=== PATIENT | female | born 1985 | race Caucasian/White ===

== ENCOUNTER 2018-07-29 11:31 | Inpatient (IN) ==
[2018-07-29] MEDS ORDERED: NS 1,000 ML IV ONE (11:45)
[2018-07-29] MEDS ORDERED: ZOFRAN IV ONE ×2 (11:45→15:57)
[2018-07-29 12:32] LABS: BASO# 0.01 X1000 (0.0-0.2); EOS# 0.01 X1000 (0.0-0.7); HEMOGLOBIN 13.1 g/dL (12.0-16.0); IMM GRAN# 0.06 X1000 (0.0-0.04); IMM GRAN% 0.3 % (0.0-0.5); LYMPH# 2.34 X1000 (1.2-3.4); LYMPH% 11.4 % (20.5-51.1); MCH 25.9 PG (27-31); MCHC 31.9 g/dL (33-37); MCV 81.4 FL (81-99); MONO# 1.02 X1000 (0.11-0.59); MONO% 5.1 % (1.7-9.3); NEUT# 16.63 X1000 (1.4-6.5); NEUT% 83.3 % (42.2-75.2); PLT 359 X1000 (130-400); RBC 5.05 XMIL (4.2-5.4); RDW 14.6 % (11.5-14.5); WBC 20.01 X1000 (4.8-10.8)
[2018-07-29 12:59] LABS: OCCULT BLOOD 1 POSITIVE (NEGATIVE)
[2018-07-29 13:02] LABS: BILIRUBIN URINE NEGATIVE (NEGATIVE); BLOOD URINE 3+ (NEGATIVE); GLUCOSE URINE NEGATIVE (NEGATIVE); KETONE URINE TRACE mg/dL (NEGATIVE); LEUKOCYTES URINE TRACE (NEGATIVE); NITRITE URINE POSITIVE (NEGATIVE); PH URINE 6.5; PROTEIN URINE 2+(100 mg/dL) mg/dL (NEGATIVE); UROBILINOGEN URINE NORMAL
[2018-07-29 13:03] LABS: CLARITY CLEAR (CLEAR); COLOR YELLOW; URINE BACTERIA 2+ /HFP; URINE CAST NONE SEEN /LPF; URINE CRYSTAL NONE SEEN /HPF; URINE EPITHELIAL CELLS >10 /HPF (<10); URINE RBC <10 /HPF (<10); URINE SOURCE CLEAN CATCH; URINE WBC <10 /HPF (<10); URINE YEAST PRESENT /HPF
[2018-07-29] MEDS ORDERED: ROCEPHIN 1 GM in NS 50 ML IV ONE (13:39)
[2018-07-29 13:57] LABS: I-STAT CREATININE 0.9 mg/dL (0.6-1.3)
[2018-07-29 14:30] LABS: INR 0.91; PROTIME 12.7 Seconds (11.0-16.0); PTT 26.4 Seconds (22.3-41.8)
[2018-07-29] MEDS ORDERED: APRESOLINE IV ONE (14:34)
--- NOTE | 2018-07-29 14:45 | Diag Imaging Result Doc PS360 ---
CT ABD/PELVIS W/IV CONT ONLY - 07/29/2018 INDICATION: abdo pain COMPARISON: 08/04/2010 FINDINGS: There are nodules in the lateral right lower lobe. These measure up to 21 x 14 mm. No infiltrates. Heart size is normal with no pericardial effusion. There is wall thickening of the antrum of the stomach compatible with gastritis. No obstruction. No free air or free fluid. The liver, gallbladder, spleen, pancreas, adrenals, and kidneys are normal. Urinary bladder, uterus, and rectum are normal. There are bilateral ovarian cysts. These measure 3.3 cm on the right and 4 cm on the left. Bones are intact. IMPRESSION: 1. Gastritis of the antrum of the stomach. No obstruction or perforation. 2. Bilateral ovarian cysts. 3. Rather large pulmonary nodule in the left lower lobe, indeterminate. This exam was performed using automated exposure control, adjustment of mA or kV according to patient size, and/or use of iterative reconstruction technique Electronically signed by Sven Lopez 07/29/2018 2:43 PM
[2018-07-29] MEDS ORDERED: TYLENOL PO ONE (15:06)
--- NOTE | 2018-07-29 15:21 | PROVIDER DOCUMENTATION ---
This chart was entered by Grecia Alvarado Scribe, acting as scribe for Prateek Hough MD. HPI-Abdominal Pain/GI Problem - General Chief Complaint: Vomiting Stated Complaint: VOMITTING Time Seen by Provider: 07/29/18 11:40 Source: patient, family Allergies/Adverse Reactions: Patient Allergies Allergy/AdvReac Type Severity Reaction Status Date / Time No Known Allergies Allergy Verified 07/29/18 11:37 Home Medications: Home Medication List Medication Instructions Recorded Confirmed Last Taken Type Lisinopril 1 tab PO DAILY 07/29/18 07/29/18 Unknown History Meloxicam 15 mg PO DAILY 07/29/18 07/29/18 Unknown History - History of Present Illness-ABD Nature of Presenting Problems: 32 yowf presents to the ed with family. pt sts yesterday saw pcp for sinus infection and was given 2 shots of abx. pt once home n/v started and sts since onset pt has vomited 14x. pt took a zofran this am @ 0900 with mild relief Abdominal Pain Onset Location: reports: generalized abdomen Quality of Pain: reports: cramping Severity in ED: reports: moderate Onset/Duration: reports: 24 hours ago Timing: reports: still present, intermittent Activities at Onset: reports: other (post abx shots x2) Exposure to sick contacts?: Yes Modifying Factors: improves with: nothing. worse with: eating Associated Symptoms: reports: nausea, vomiting (x14). denies: back/neck pain, chest pain, cough, diarrhea, fever/chills, headaches, muscle aches, rash, syncope Last BM: last night Dark Stools Present?: reports: none noticed Rectal Bleeding: reports: none # of Diarrhea Episodes: 0 Rectal Pain: reports: none # of Vomiting Episodes: 14 (since onset yesterday) Emesis Description: reports: other (sts has "blood chunks" in vomit) Bruising or Bleeding Gums?: No Similar Symptoms Previously?: No Recently seen or treated by another doctor?: No Review of Systems - Adult - REVIEW OF SYSTEMS - ADULT Constitutional: denies: chills, fever Eyes: reports: no symptoms reported Ears, Nose, Mouth & Throat: reports: no symptoms reported Cardiovascular: denies: chest pain, palpitations Respiratory: denies: cough, shortness of breath, wheezing Gastrointestinal: reports: see HPI, abdominal pain (diffuse), hematemesis ("blood chunks"), nausea, vomiting. denies: diarrhea Genitourinary: reports: no symptoms reported Musculoskeletal: denies: back pain, neck pain Integumentary: reports: no symptoms reported Neurological: reports: no symptoms reported Psychiatric: reports: no symptoms reported Endocrine: reports: no symptoms reported Hematologic/Lymphatic: reports: no symptoms reported Allergic/Immunologic: reports: no symptoms reported All Other Systems: Reviewed and Negative Past History - Adult - PAST MEDICAL HISTORY-ADULT Review of Records: reports: Nursing Assessment Review, Medications Reviewed Major Childhood Illnesses: reports: denies history Cardiovascular: reports: denies history Respiratory: reports: denies history Gastrointestinal: reports: denies history Obstetrical/Gynecological: reports: other (PCOS) Genitourinary: reports: denies history Musculoskeletal: reports: denies history Hand Dominance: Right Handed Neurological: reports: denies history Psychiatric: reports: denies history Endocrine/Immune: reports: denies history Other Conditions: reports: denies history - PRIOR SURGERIES/PROCEDURES Surgical/Procedure History: reports: other (stomach sx as a toddler) - IMMUNIZATION STATUS Childhood Immunizations: See Nurse Assessment Flu Vaccine: See Nurse Assessment - FAMILY HISTORY Family History: reviewed, not pertinent - SOCIAL HISTORY Smoking: denies Substance Use: alcohol Alcohol Use Frequency: occasionally Number of drinks per typical drinking period:: 3-4 drinks Living Situation: family Physical Exam-General - PHYSICAL EXAM-ADULT Initial Vital Signs Reviewed: Yes - CONSTITUTIONAL General Appearance: appears well, alert, no apparent distress, obese - EYES Eyes: PERRL/EOMI, pink conjunctivae - HEAD, EARS, NOSE, MOUTH & THROAT HENMT: moist mucous membranes (pt is nontoxic in appearance. pt holding emesis bag and garbage can with no vomit in either), normal ENT inspection - NECK Neck: non-tender, full range of motion, supple, normal inspection - RESPIRATORY Respiratory: chest non-tender, lungs clear, normal breath sounds - CARDIOVASCULAR Cardiovascular: normal peripheral pulses, regular rate, rhythm - GASTROINTESTINAL (ABDOMEN) Abdominal Exam: normal bowel sounds, non tender, soft - LYMPHATIC Lymphatic: no adenopathy - MUSCULOSKELETAL Back Exam: normal inspection, no CVA tenderness, no vertebral tenderness Extremity: normal range of motion, non-tender, normal gait, normal inspection - SKIN Integumentary: normal color, normal turgor, warm/dry - NEUROLOGIC Neurologic: grossly normal - PSYCHIATRIC Psych/Mental Status: normal mood/affect, normal thought content, normal thought process, oriented x 3 Progress - PLAN OF CARE/RESULTS Progress/Plan/Lab Results: Vital Signs - 8 hr 07/29/18 11:35 Temperature 98.0 F Pulse Rate 95 H Respiratory Rate 17 Blood Pressure 164/110 O2 Sat by Pulse Oximetry 96 Result Diagrams: 07/29/18 11:15 07/29/18 13:50 - REASSESSMENT Reassessment #1 Time Reassessed: 12:13 Status: unchanged Reassessment Comment: at bedside Reassessment #2 Time Reassessed: 15:01 Status: unchanged Reassessment Comment: at bedside - CT/MRI 1 CT Study: Abdomen, Pelvis Impression: See EMR Report (CT ABD/PELVIS W/IV CONT ONLY - 07/29/2018 INDICATION: abdo pain COMPARISON: 08/04/2010 FINDINGS: There are nodules in the lateral right lower lobe. These measure up to 21 x 14 mm. No infiltrates. Heart size is normal with no pericardial effusion. There is wall thickening of the antrum of the stomach compatible with gastritis. No obstruction. No free air or free fluid. The liver, gallbladder, spleen, pancreas, adrenals, and kidneys are normal. Urinary bladder, uterus, and rectum are normal. There are bilateral ovarian cysts. These measure 3.3 cm on the right and 4 cm on the left. Bones are intact. IMPRESSION: 1. Gastritis of the antrum of the stomach. No obstruction or perforation. 2. Bilateral ovarian cysts. 3. Rather large pulmonary nodule in the left lower lobe, indeterminate. This exam was performed using automated exposure control, adjustment of mA or kV according to patient size, and/or use of iterative reconstruction technique Electronically signed by Sven Lopez 07/29/2018 2:43 PM 07/29/18 1443 Interpreting Physician: Sven Lopez MD Dictated Date/Time: 07/29/18 1440 cc: Prateek Hough MD; Billy Wray MD) - CONSULTS/PCP/HOSPITALIST Notification #1 *Consult/PCP/Hospitalist*: hospitalist dr waldron Time Discussed: 15:18 Consult Disposition: Admit Departure - Departure Date of Disposition Decision: 07/29/18 Time of Disposition Decision: 15:18 DIAGNOSIS: Pyelonephritis, GI bleeding, Lung nodule, Hematuria Disposition: ADMITTED INPATIENT 09 Certified Medical Emergency: Emergent Condition: Fair Referrals and Follow-Ups: Billy Wray MD [Primary Care Provider] - - Critical Care Note This patient required my direct & personal management of CC.: No Attestation - Physician/ CRIS Attestation Patient care was provided by Advanced Practice Provider:: No The physician spent face to face time with patient:: Yes Advanced Practice Provider documentation review:: Supervising physician onsite and consulted in the evaluation and care of this patient. The physician did have a face to face encounter with the patient. This chart was documented by the indicated scribe, (Grecia Alvarado Scribe) and accurately reflects the services I performed and decisions made by me, Prateek Hough MD, as attested by the provider's signature.
[2018-07-29 15:30] LABS: AGAP 19; ALBUMIN 4.4 g/dL (3.5-5.0); ALKALINE PHOSPHATASE 117 U/L (32-104); BUN 18 mg/dL (8-22); CALCIUM 9.1 mg/dL (8.8-10.2); CHLORIDE 101 mmol/L (98-107); COSMO 292; CREATININE 0.9 mg/dL (0.5-0.9); ESTIMATED GFR > 60; GLUCOSE 119 mg/dL (70-104); GOT 13 U/L (10-30); GPT 13 U/L (10-36); POTASSIUM 3.9 mmol/L (3.5-5.1); SODIUM 145 mmol/L (136-145); TCO2 26 mmol/L (25-35)
[2018-07-29] MEDS ORDERED: TYLENOL PO PRN (17:57)
[2018-07-29] MEDS ORDERED: ZOFRAN IV PRN (17:57)
--- NOTE | 2018-07-29 18:25 | HISTORY AND PHYSICAL ---
PRIMARY CARE PROVIDER: Dr. Billy Wray. CHIEF COMPLAINT: Nausea and vomiting. HISTORY OF PRESENT ILLNESS: Ms. Paul is a 32-year-old female who carries a past medical history of morbid obesity, hypertension, bilateral hip arthritis, who reports that on Saturday she started feeling bad. She was diagnosed with a sinus infection. She got 2 shots of antibiotics and on Saturday she started experiencing nausea and vomiting. She had no relief with p.o. Zofran. She came to the ED today complaining of fever of 101.3, chills. Workup in the ED revealed a white count of 20, urinalysis with 3+ blood, positive nitrate, 2+ bacteria, and a positive occult stool. CT of the abdomen and pelvis showed gastritis in the antrum of the stomach but no obstruction or perforation. Bilateral ovarian cysts and a rather large pulmonary nodule in the left lower lobe. She was initiated on IV antibiotics, work up for sepsis. Her lactates have been normal. Her nausea and vomiting has been controlled with IV Zofran and IV fluids. We will transfer her to [facility] for consult with gastroenterology for her positive occult stool as she also reports some black dark stools and her gastritis. She recently started taking meloxicam for her bilateral hip arthritis, as well as follow up with Pulmonology for her large nodule. Hemoglobin and hematocrit is currently stable at 13 and 41. PAST MEDICAL HISTORY: 1. Hypertension. 2. Bilateral hip arthritis. PAST SURGICAL HISTORY: , stomach surgery at the age of 1 to open of her stomach. SOCIAL HISTORY: She is . She has twin children, a boy and a girl. She was a half a pack a day smoker on and off for several years. She recently started to wean down. No alcohol, tobacco, or illicit drug use. She was a drug and alcohol abuse counselor for 9 years. FAMILY HISTORY: multiple family with heart disease with father, mother, brother, sister, as well as strokes and kidney disease. ALLERGIES: No known drug allergies. HOME MEDICATIONS: 1. Lisinopril 20 mg p.o. daily. 2. Meloxicam 15 mg p.o. daily. REVIEW OF SYSTEM: The patient was positive for fever, chills, nausea, vomiting. She did feel like she had some darker stools. No chest pain, palpitations, shortness of breath. PHYSICAL EXAMINATION: VITAL SIGNS: Temperature is 98.7 degrees, heart rate 100, respirations 18, blood pressure 134/102, O2 is 97% on room air. GENERAL: Ms. Paul is a pleasant, 32-year-old female, sitting up in the stretcher, in no acute distress. HEENT: Atraumatic, normocephalic. PERRL. NECK: Supple. Trachea midline. CARDIOVASCULAR: S1, S2 appreciated. No murmurs, gallops, rubs noted. RESPIRATORY: Lung sounds clear bilaterally. GI: Obese, soft, nontender, nondistended. Positive bowel sounds 4 quadrants. EXTREMITIES: No lower extremity edema. Bilateral pedal pulses were bounding. NEUROLOGIC: No focal deficits noted. DIAGNOSTIC DATA: Abdomen and pelvis CT: Gastritis in the antrum of the stomach. No obstruction or perforation. Bilateral ovarian cysts with a large pulmonary nodule in the left lower lobe. LABORATORY DATA: White count 20, hemoglobin and hematocrit 13 and 41, platelet count 359,000. Sodium 145, potassium 3.9, BUN 18, creatinine 0.9, blood glucose is 119. Urinalysis, 2+ protein, 3+ blood, positive nitrates, 2+ bacteria. Occult stool positive. ASSESSMENT AND PLAN: 1. Pyelonephritis. We will continue with IV antibiotics, IV fluids. We will await urine culture as well as blood cultures. 2. Gastritis in the antrum. We will start her on PPI. Continue with clear liquids. Consult GI. 3. Questionable gastrointestinal bleed. Hemoglobin and hematocrit are stable. Patient did report some dark stools but no bright red blood per rectum. We will continue to monitor her hemoglobin and hematocrit closely. Appreciate GI's input and we will stop her NSAID. 4. Large pulmonary nodule. We will consult Pulmonology for assessment. 5. Hypertension. Will continue her lisinopril. 6. Bilateral hip arthritis. Aware. Will provide her p.r.n. Tylenol. 7. Further recommendations to follow physician evaluation, laboratory and diagnostic data. Patient will be transferred over to [facility] for GI and Pulmonary consult. Dictated by MILIND Wolfe for Michael Knowles MD cc: Michael Knowles MD [facility]
[2018-07-29] MEDS: PRILOSEC PO SCH (18:34)
[2018-07-29] MEDS: LEVAQUIN 750 MG/D5W 750 MG/150 ML IVPB IV SCH (18:35)
[2018-07-29] MEDS: NS 1,000 ML IV SCH (18:35)
--- NOTE | 2018-07-29 18:47 | HISTORY AND PHYSICAL ---
HISTORY OF PRESENT ILLNESS: Patient seen and examined by myself. Full note dictated and discussed with nurse practitioner. Patient presented to the hospital with nausea and vomiting. States that she has been vomiting heavily for the past 24 hours or so. States she has noticed blood in her stool, dark black stool started earlier today. She felt as though she had a urinary tract infection, so she came to the ER. On exam, her blood pressure was 134/102. She is awake and alert. She is currently in no distress. She has had no further vomiting or diarrhea since arrival to the hospital. PLAN: We will admit her to the hospital, place her on antibiotics. We will stop her anti- inflammatory that she has apparently recently started within the past month I believe and we will follow. Please see full note. cc: Michael Knowles MD
--- NOTE | 2018-07-29 19:28 | GASTROENTEROLOGY CONSULTATION ---
DATE: 07/29/2018 CONSULTING PHYSICIAN: Dr. Knowles. REASON FOR CONSULT: Heme-positive stool. HISTORY: This is a 32-year-old, white female, with no history of major medical problem except for polycystic ovarian syndrome and history of some hip pain, was recently started on meloxicam. Admitted to hospital with complaints of nausea, vomiting and diarrhea. She had a sudden onset of symptoms. She does not remember of eating out, or eating something unusual. She reports nobody else in the family with similar symptoms. She has had multiple episodes of emesis but did not see any coffee-ground material or blood in it. She has multiple stools but did not see any blood in her stool, but she did see some mucus in her stool. She did have Hemoccult done which was positive. She denied any history of headache or dizziness or double vision. She did run some temperature. She denies any sore throat, sores in her mouth. Has not had any dysphagia, odynophagia. She denies carrying any diagnosis of gastroesophageal reflux disease. She has not had any history of peptic ulcer disease. She denies chest pain, shortness of breath or palpitations. Has had no cough, sputum or hemoptysis. But a CT scan of the abdomen and pelvis done which showed a nodule in her chest. Indeterminate lesion in her lung. Since admission, she has not had any episodes of emesis, has not had any diarrhea anymore. She denies any dysuria, polyuria, hematuria, but her urinalysis shows possible signs of a UTI. Cultures are pending. PAST MEDICAL HISTORY: Significant for hypertension, polycystic ovarian syndrome. PAST SURGICAL HISTORY: She has had 2 years ago. Pyloroplasty for pyloric stenosis as a child. MEDICATIONS: Prior to hospitalization, she was on lisinopril, meloxicam. ALLERGIES: No drug allergies. SOCIAL HISTORY: She is and works as a counselor. Does not smoke. She is in the process of quitting. Drinks on occasion only. Does not use illicit drugs. FAMILY HISTORY: Noncontributory. REVIEW OF SYSTEMS: As per HPI as above. PHYSICAL EXAMINATION: General: On examination, a very pleasant, white female, overweight. She is sitting in the bed. She is conscious, alert. Appears to be in no distress. Vital Signs: Temperature 98.6, pulse was ranging from 100 to 103 per minute, regular. Breathing rate 16. Blood pressure 135/76. She is 5 feet 2 inches tall. She is 306 pounds. HEENT: Head is atraumatic, normocephalic. Eyes: Conjunctivae is normal. Sclerae anicteric. Nares are patent. No discharge. Mouth: Mucous membranes moist. Throat is normal. Neck: Neck is supple. No lymphadenopathy or thyromegaly noted. Chest: Bilaterally symmetrical. It is moving with respirations. Breath sounds audible bilaterally. No rhonchi or crepitations could be heard. Heart: S1 and S2 audible. No murmur could be appreciated. Abdomen: Obese, soft, mildly tender in lower part of the abdomen but no rebound tenderness. No guarding noted. Bowel sounds are audible. Extremities: No pedal edema, cyanosis, clubbing was noted. [employer]: Grossly intact. No sensory or motor deficit. LABS: Reviewed which showed a WBC of 20.01, hemoglobin is 13.1, hematocrit 41.0, MCV 81.4, platelets were 359. PT 12.7, INR 0.91, PTT 26.4. Sodium 145, potassium 3.9, chloride 101, bicarb 26, BUN is 18, creatinine 0.9. Transaminases AST 13, ALT 13, total bilirubin was 0.202, alkaline phosphate is 117. Urinalysis positive for UTI. Hemoccult was positive. CT scan of the abdomen and pelvis done which showed slight inflammation of the antrum suggestive of gastritis. Bilateral ovarian cyst and pulmonary nodule noted in left lower lobe. IMPRESSION AND PLAN: This is a 32-year-old, white female with history of hypertension and polycystic ovarian disease. Has presented with nausea, vomiting and diarrhea. On presentation, she was found to have elevated white count and the urinalysis suggestive of possible urinary tract infection. I think her gastrointestinal symptoms are constitutional symptoms from her urinary tract infection. She did have heme-positive stool, but hemoglobin and hematocrit are within normal range, although that may be slightly higher because of her dehydration which will go down after hydration. But I do not think she has had a significant amount of bleeding resulting in anemia. At this point, I agree with hydration and empirically put her on antibiotic while waiting for her urine culture results. I will put her on GI prophylaxis by giving her Prilosec 40 mg every day. Start her on full liquid diet and advance as tolerated, and will follow while she is in the hospital. I do not think she needs any endoscopic evaluation at this point, I would avoid meloxicam or any NSAID at this point. cc: Dewayne Dhillon MD
[2018-07-30] MEDS: PRILOSEC PO SCH ×2 (06:10→19:26)
[2018-07-30] MEDS: NS 1,000 ML IV SCH ×3 (06:11→19:25)
[2018-07-30 06:29] LABS: BASO# 0.02 X1000 (0.0-0.2); BASO% 0.1 % (0.0-0.8); EOS# 0.01 X1000 (0.0-0.7); EOS% 0.1 % (0.0-10.0); HEMATOCRIT 38.9 % (37.0-47.0); HEMOGLOBIN 12.3 g/dL (12.0-16.0); IMM GRAN# 0.03 X1000 (0.0-0.04); IMM GRAN% 0.2 % (0.0-0.5); LYMPH# 2.87 X1000 (1.2-3.4); LYMPH% 20.2 % (20.5-51.1); MCH 26.3 PG (27-31); MCHC 31.6 g/dL (33-37); MCV 83.1 FL (81-99); MONO# 0.77 X1000 (0.11-0.59); MONO% 5.4 % (1.7-9.3); MPV 10.1 FL (7.4-10.4); NEUT# 10.53 X1000 (1.4-6.5); PLT 340 X1000 (130-400); RBC 4.68 XMIL (4.2-5.4); RDW 14.9 % (11.5-14.5); WBC 14.23 X1000 (4.8-10.8)
[2018-07-30 06:52] LABS: AGAP 12; ALB/GLOB RATIO 1.1; ALBUMIN 3.7 g/dL (3.5-5.0); ALKALINE PHOSPHATASE 94 U/L (32-104); BUN 15 mg/dL (8-22); CALCIUM 8.6 mg/dL (8.8-10.2); CHLORIDE 104 mmol/L (98-107); COSMO 282; CREATININE 0.8 mg/dL (0.5-0.9); ESTIMATED GFR > 60; GLUCOSE 91 mg/dL (70-104); GOT 11 U/L (10-30); GPT 10 U/L (10-36); MAGNESIUM 2.4 mg/dL (1.5-2.7); POTASSIUM 3.7 mmol/L (3.5-5.1); SODIUM 141 mmol/L (136-145); TCO2 25 mmol/L (25-35); TOTAL BILIRUBIN 0.25 mg/dL (0.20-1.00); TOTAL PROTEIN 7.1 g/dL (6.3-8.3)
--- NOTE | 2018-07-30 07:25 | Diag Imaging Result Doc PS360 ---
CHEST-PORTABLE - 07/30/2018 INDICATION: follow up COMPARISON: 04/03/2015 FINDINGS: The lungs are normally expanded and clear. Heart size and mediastinal contours are normal. No pneumothorax or pleural effusion. IMPRESSION: Negative exam. Electronically signed by Sven Lopez 07/30/2018 7:22 AM
[2018-07-30] MEDS: PRINIVIL PO SCH (08:50)
[2018-07-30] MEDS: CARAFATE LIQUID PO SCH ×3 (10:38→17:34)
--- NOTE | 2018-07-30 13:21 | Diag Imaging Result Doc PS360 ---
EXAM: CT THORAX W/O CONTRAST 07/30/2018 HISTORY: SOB TECHNIQUE: This exam was performed using automated exposure control, adjustment of mA or kV according to patient size, and/or use of iterative reconstruction technique. COMMENT: There are no previous thoracic studies available for comparison. There is a pleural-based somewhat lobulated nodule present in the left lower lobe measuring up to 2.2 cm in greatest dimension. This was demonstrated on the previous abdominal study of 07/29/2018. In addition to this nodule there are multiple other nodules in the left lower lobe more superiorly including one adjacent to the fissure on image 62 measuring 8 mm and apparent enlarged inferior hilar nodes on the left. There are some small nodules measuring less than 5 mm posteriorly on image 39 in the left upper lobe. There is a tiny nodule in the lateral right apex on image 21 there is a 2.1 cm aorticopulmonary window node. The regional skeleton appears to be intact. There are no abnormal fluid collections. IMPRESSION: Multiple pulmonary nodules as described above particularly in the left lower lobe. Given the age of the patient and the distribution with most of the nodules being on the left side this is probably due to granulomatous disease. Six-month follow-up is recommended. Electronically signed by Jj Cooper 07/30/2018 1:19 PM
--- NOTE | 2018-07-30 16:25 | PROGRESS NOTE ---
DATE: 07/30/2018 SUBJECTIVE: The patient seems to be doing better. She is still complaining of epigastric pain and reflux. Before coming to the hospital, the urine was cloudy and she had some pain or discomfort at the level of the suprapubic area. This has been getting better. So far negative cultures. She is not complaining of nausea or vomiting today. WBC decreased from 20 to 14. Hopefully tomorrow will be better and we can check the urine culture as well. Gastroenterology department evaluated this patient and they will just monitor the hemoglobin and hematocrit which has been stable. We will continue with GI prophylaxis with Prilosec and also Carafate. We will monitor. Probably she needs to follow up with Gastroenterology Department as an outpatient. OBJECTIVE: Vital Signs: Temperature 98.5, pulse 79, respiratory rate 16, blood pressure 140/83, oxygen saturation 97% on room air. HEENT: Head normocephalic. No trauma. PERRLA. Neck: Supple. No JVD. No masses. Central trachea. Chest: Clear to auscultation. No wheezing. No rales. Abdomen: Soft. Some suprapubic tenderness. Nontender, nondistended. No hepatosplenomegaly. She may have a little bit of CVA tenderness on the right side. Neurological: The patient is alert and oriented x3. No focal deficits. LABORATORY: WBC 14.2, hemoglobin 12.3, hematocrit 38.9, platelets 340. Sodium 141, potassium 3.7, chloride 104, bicarbonate 25, BUN 15, creatinine 0.8, glucose 91. Calcium 8.6, AST 11, ALT 10, alkaline phosphatase 94, albumin 3.7. ASSESSMENT AND PLAN: 1. Urinary tract infection with possible pyelonephritis. CT scan negative for obstruction or hydronephrosis. I will continue with IV antibiotics. WBC is trending down. We will await urine culture results as well as blood cultures, which so far are normal. 2. Gastritis in the antrum by CT scan. We will continue with proton pump inhibitors. She was on clear liquid diet, but I will advance it, and she has been placed on Carafate as well. 3. Questionable gastrointestinal bleed, I do believe that was secondary to nausea and vomiting that she was having before coming to the hospital. She has a positive Hemoccult, but the hemoglobin is stable. I am expecting a drop on her hemoglobin due to IV fluids. 4. Pulmonary nodules. CT scan has been done and showed multiple pulmonary nodules in the left lower lobe. Pulmonary Department aware of the patient and they will follow this patient up. She has no pulmonary symptoms at this moment. 5. Hypertension. We will continue with her lisinopril. 6. Bilateral hip arthritis aware. Continue with the same management. 7. I think her main problem is the urinary tract infection and the severe gastritis that she has, I do believe we need to continue treating this patient medically. Likely, she will need to follow up with both Pulmonary Department and Gastroenterology as an outpatient for further treatment and monitoring. She seems to be stable, but she is still having some symptoms and the WBC is still high. I will keep this patient 1 more night to monitor also the cultures, which have been negative so far. cc: Mariano Simms MD
--- NOTE | 2018-07-30 18:21 | GASTROENTEROLOGY PROGRESS NOTE ---
DATE: 07/29/2018 SUBJECTIVE: The patient feels a little better. She has not had any episodes of vomiting today. She is reporting burning in the esophagus. OBJECTIVE: Vital Signs: Temperature 98.5 degrees, pulse 79, respirations 16, blood pressure 140/83. General: The patient is awake and alert, no acute distress. LABORATORY: Hematology: WBC 14.23, hemoglobin 12.3, hematocrit 38.9, MCV 83.1, platelet 340,000. Chemistry: Sodium 141, potassium 3.7, chloride 104, CO2 of 25, BUN 15, creatinine 0.8, glucose 91, calcium 8.6. Total bilirubin 0.25, AST 11, ALT 10, alkaline phosphatase 94. ASSESSMENT AND PLAN: 1. Nausea and vomiting, improved. 2. Burning in esophagus most likely related to recent vomiting. Continue PPI. Will add Carafate liquid before meals. 3. Urinary tract infection. Microbiology showed no growth on urine culture. Continue current antibiotics. 4. Continue PPI, Carafate, antireflux measures. 5. We will continue to follow. Further plans will be made according to her progress. If symptoms do not improve, may need endoscopic evaluation. We will continue to follow and further plans to be made as needed. I have discussed this case with Dr. Dhillon. Dictated by MILIND Tapia for Dewayne Dhillon MD cc: MILIND [place] MD
[2018-07-30] MEDS: LEVAQUIN 750 MG/D5W 750 MG/150 ML IVPB IV SCH (19:27)
--- NOTE | 2018-07-30 19:37 | CONSULTATION ---
DATE OF CONSULTATION: 07/30/2018 REQUESTING PROVIDER: MILIND Wolfe. REASON FOR CONSULTATION: Pulmonary nodule. HISTORY OF PRESENT ILLNESS: This is a 32-year-old female with a medical history of morbid obesity, hypertension, chronic joint pain and ongoing light tobacco abuse. She presented to the [facility] on 07/29/2018 with severe nausea and vomiting for 2 days. She went to see the family doctor on 07/28/2018 for a sinus infection and was prescribed with an oral medicine. She currently does not remember the name of the medicine, but reported that after she took it, she started having nausea and vomiting. Initial workup in the ER revealed pyelonephritis, gastritis in the antrum, questionable gastrointestinal bleed and multiple pulmonary nodules. She has been admitted to the medical floor of our facility for further evaluation and management. The patient currently is sitting in the bed with no active distress noted. She is at room air. She reports chronic cough mainly in the morning with some sputum at times and she thinks the reason of cough is smoking. She reports that she has no more nausea or vomiting at this time. She still have a sore throat which decreases her appetite. She also reports some black dark stools, but she has no hemoptysis, wheezing, chest pain, diarrhea, constipation or unintentional weight change. PAST MEDICAL AND SURGICAL HISTORY: 1. Morbid obesity. Current BMI 56.0. 2. Hypertension. 3. Chronic joint pain, worsening in the last 6 months; taking meloxicam at home 4. Ongoing light tobacco abuse 5. , 2 years ago. 6. Stomach surgery at the age of 1. SOCIAL HISTORY: The patient is and lives at home. She was a drug and alcohol abuse counselor for 9 years. She has 2 year-old twin, 1 boy and 1 girl. She smokes on and off for years, maximal half a pack per day. Currently, she weans down to 4 to 5 cigarettes per day. The patient's is a daily smoker. He smokes 1 pack per day. She has no history of alcohol or illicit drug use. FAMILY HISTORY: Positive for hypertension, stroke, kidney failure, and skin cancer. ALLERGIES: No known drug allergies. REVIEW OF SYSTEMS: A 10-point review of systems was conducted and the pertinent is listed within the HPI, otherwise noncontributory. PHYSICAL EXAMINATION: Vital Signs: Temperature 98.3, blood pressure 146/76, pulse 78, respiratory rate 16, oxygen saturation 96% on room air. General: Morbidly obese, very pleasant and cooperative, resting in bed with no acute distress noted. The patient's is at the bedside. HEENT: Atraumatic. Trachea is midline. Mucosa pink and moist. Respiratory: Respirations even and unlabored. Symmetrical excursion. Clear to auscultation posteriorly. Cardiovascular: Regular rate and rhythm. Gastrointestinal: Bowel sounds normoactive in all 4 quadrants. Soft, obese with epigastric and pelvic tenderness on palpation. Extremities: No pedal edema. No cyanosis. No clubbing. Dorsalis pedis 2+ bilaterally. Neurologic: Alert and oriented x3. Speech fluent. Follows commands. LAB DATA: White blood cell 14.23, hemoglobin 12.3, hematocrit 38.9, platelets 340,000. Sodium 141, potassium 3.7, chloride 104, carbon dioxide 25, BUN 15, creatinine 0.8 and glucose 91. IMAGING DATA: Chest x-ray this morning showed negative exam. Chest CT showed multiple pulmonary nodules, particularly in the left lower lobe. Given the age of the patient and the distribution with most of the nodules being on the left side, this is probably due to granulomatous disease. ASSESSMENT: This is a 32-year-old female with a medical history of morbid obesity, hypertension, chronic joint pain on meloxicam and ongoing light tobacco abuse. She has been admitted to the medical floor since yesterday with pyelonephritis, gastritis in the antrum, questionable gastrointestinal bleed and multiple pulmonary nodules. 1. Multiple pulmonary nodules particularly in the left lower lobe. 2. Pyelonephritis. 3. Gastritis in the antrum. 4. Questionable gastrointestinal bleed. 5. Ongoing light tobacco abuse. PLAN: 1. We will first repeat CT outpatient in 3 to 6 months to confirm persistence; consider PET scan or biopsy if indicated. 2. Continue antibiotic for pyelonephritis. 3. Encourage patient and her to quit smoking. 3. Continue gastrointestinal and deep vein thrombosis prophylaxis. 4. Further recommendations pending hospital course. Thank you for the courtesy of this consult. Dictated by MILIND Cullen for Dyan Farnsworth MD cc: MILIND Cullen MD [facility]
[2018-07-31] MEDS: NS 1,000 ML IV SCH ×2 (05:41→05:42)
[2018-07-31] MEDS: PRILOSEC PO SCH (05:51)
[2018-07-31 06:39] LABS: BASO# 0.03 X1000 (0.0-0.2); BASO% 0.3 % (0.0-0.8); EOS# 0.03 X1000 (0.0-0.7); EOS% 0.3 % (0.0-10.0); HEMATOCRIT 37.5 % (37.0-47.0); HEMOGLOBIN 11.7 g/dL (12.0-16.0); IMM GRAN# 0.02 X1000 (0.0-0.04); IMM GRAN% 0.2 % (0.0-0.5); LYMPH# 3.34 X1000 (1.2-3.4); LYMPH% 30.9 % (20.5-51.1); MCH 26.2 PG (27-31); MCHC 31.2 g/dL (33-37); MCV 84.1 FL (81-99); MONO# 0.59 X1000 (0.11-0.59); MONO% 5.5 % (1.7-9.3); NEUT# 6.81 X1000 (1.4-6.5); NEUT% 62.8 % (42.2-75.2); PLT 347 X1000 (130-400); RBC 4.46 XMIL (4.2-5.4); RDW 14.6 % (11.5-14.5); WBC 10.82 X1000 (4.8-10.8)
[2018-07-31 07:02] LABS: AGAP 9; BUN 9 mg/dL (8-22); CALCIUM 8.6 mg/dL (8.8-10.2); CHLORIDE 105 mmol/L (98-107); COSMO 279; CREATININE 0.8 mg/dL (0.5-0.9); ESTIMATED GFR > 60; GLUCOSE 86 mg/dL (70-104); POTASSIUM 3.7 mmol/L (3.5-5.1); SODIUM 141 mmol/L (136-145); TCO2 27 mmol/L (25-35)
[2018-07-31] MEDS: CARAFATE LIQUID PO SCH ×2 (08:01→12:21)
[2018-07-31] MEDS: PRINIVIL PO SCH (08:02)
[2018-07-31 11:48] VITALS: BP 144/95
--- NOTE | 2018-07-31 16:09 | GASTROENTEROLOGY PROGRESS NOTE ---
DATE: 07/31/2018 SUBJECTIVE: At the time of my rounds this morning, the patient was asleep. She was in no acute distress. OBJECTIVE: Vital Signs: Temperature 99.0 degrees, pulse 76, blood pressure 144/95. LABORATORY: Hematology: WBC 10.82, hemoglobin 11.7, hematocrit 37.5, MCV 84.1, platelets 347. Chemistry: Sodium 141, potassium 3.7, chloride 105, CO2 27. BUN 9, creatinine 0.8, glucose 86, calcium 8.6. ASSESSMENT AND PLAN: 1. Urinary tract infection, possible pyelonephritis. Patient has been on antibiotics. 2. Nausea vomiting, gastritis by CT scan. Patient has been started on proton pump inhibitor and Carafate. 3. Pulmonary nodules seen by Dr. Farnsworth. Recommended follow up CT scan as an outpatient. Will continue symptomatic treatment and supportive care once her other medical problems have improved, including current infection. If she continues to have gastrointestinal symptoms, would recommend esophagogastroduodenoscopy for evaluation. Patient can follow up with us as an outpatient. Otherwise, will continue to follow with her during her hospitalization. Further plans will be made according to her progress. I have discussed this case with Dr. Dhillon. Dictated by MILIND Tapia for Dewayne Dhillon MD cc: MILIND [place] MD
--- NOTE | 2018-07-31 16:11 | GASTROENTEROLOGY PROGRESS NOTE ---
DATE: 07/31/2018 NO DICTATION Dictated by MILIND Tapia for Dewayne Dhillon MD cc: MILIND [place] MD
--- NOTE | 2018-08-01 05:55 | DISCHARGE SUMMARY ---
ADMISSION DATE: 07/29/2018 DISCHARGE DATE: 07/31/2018 DISCHARGE DIAGNOSES: 1. Urinary tract infection with possible pyelonephritis, CT scan negative for obstruction, hydronephrosis or pyelonephritis. 2. Gastritis in the antrum by CT scan. 3. Questionable GI bleed, hemoglobin and hematocrit stable. 4. Pulmonary nodules. 5. Hypertension. 6. Bilateral hip arthritis. PROCEDURES PERFORMED: Abdomen and pelvis CT scan dated 07/29/2018. Impression: Gastritis in the antrum of the stomach, no obstruction or perforation, bilateral ovarian cyst, a pulmonary nodule in the left lower lobe, indeterminate. CT scan of the chest dated 07/30/2018. Impression: Multiple pulmonary nodules as described in the left lower lobe. Given the age of the patient and the distribution with most of the nodule being on the left side, this is probably due to granulomatous disease. Six-month follow-up is recommended. HOSPITAL COURSE: A 32-year-old female with a past medical history of morbid obesity, hypertension, and bilateral hip arthritis reported that the Saturday prior to admission she started feeling bad. She was diagnosed with sinus infection. She got 2 shots of antibiotics, and the next day she started having nausea and vomiting. She was admitted here on 07/29/2018. She was not relieved with p.o. Zofran. She came into the ER with fever of 101.3 plus chills. Workup in the emergency department showed a white blood cell count of 20. Urinalysis 3+ blood with positive nitrate, 2+ bacteria, and positive occult blood in the stool. CT of the abdomen and pelvis showed gastritis in the antrum of the stomach, but no obstruction or perforation. Bilateral ovarian cyst and rather large pulmonary nodule in the left lower lobe. CT scan of the chest has been done and showed multiple pulmonary nodules on the left side. She was placed on antibiotics. Workup for sepsis, blood culture, and urine culture negative probably because she already received some antibiotics before. She was evaluated by Gastroenterology Department because of her positive occult blood in the stool but, they recommended just to keep an eye on the hemoglobin and hematocrit. They put this patient on pantoprazole and Carafate. They will monitor this patient as an outpatient if she does not get better. Also, because of the pulmonary nodules, Pulmonary Department has been consulted, and they have recommended to follow up with a CT scan as an outpatient in 3 to 6 months to confirm the persistence. Of course, we will consider PET scan or biopsy if indicated in the future. We will continue the treatment with levofloxacin as an outpatient. She is completely asymptomatic today. A low increase of temperature today in the morning at 102, but WBC decreased from 20 to 14, and today is 10. I think this patient is good to discharge. We will continue with antibiotics at home and gastric protection. PHYSICAL EXAMINATION: Vital Signs: Temperature 99 degrees, pulse 76, respiratory rate 20, blood pressure 144/95, and oxygen saturation 96 on room air. HEENT: Head normocephalic. No trauma. PERRLA. Neck: Supple. No JVD. No masses. Central trachea. Chest: Clear to auscultation. No wheezing. No rales. Abdomen: Soft, nontender, nondistended. No hepatosplenomegaly. Extremities: No edema. No clubbing. No cyanosis. Neurological: The patient is alert and oriented x3. No focal deficits. LABORATORY: WBC 10.8, hemoglobin 11.7, hematocrit 37.5, and platelets 347,000. Sodium 141, potassium 3.7, chloride 105, bicarbonate 27, BUN 9, creatinine 0.8 glucose 86, and calcium 8.6. DISCHARGE MEDICATIONS: 1. Levofloxacin 500 mg p.o. daily to complete 5 days. 2. Lisinopril 30 mg p.o. daily. 3. Omeprazole 40 mg p.o. twice a day. 4. Carafate 1 g p.o. 4 times a day. FOLLOW-UP: 1. Dr. Farnsworth in 2 to 3 months. 2. Follow up with Gastroenterology in 1 month. TIME SPENT: Time discharging this patient 30 minutes. cc: Mariano Simms MD
== END 2018-07-31 15:37 | disposition home or self-care (01) | DRG 690 ==
LOC: 4N 11:31 → P.ED 11:31 → SUATTDRO 16:20 → OBSVTOIN 16:20 → 4N 17:34
PROVIDERS: ATTEND Internal Medicine
CPT/HCPCS: 71010; 71045; 71250; 74177; 80048; 80053; 81001; 82270; 82550; 82565; 83605; 83735; 84484; 84520; 85025; 85610; 85730; 87040; 87088; A9270; J0360; J0696; J1956; J2405; J7030; Q9967

== ENCOUNTER 2019-04-23 13:03 | Inpatient (IN) ==
[2019-04-23] MEDS ORDERED: MORPHINE IV ONE (13:45)
[2019-04-23] MEDS ORDERED: NS 1,000 ML IV ONE ×2 (13:45→17:54)
[2019-04-23] MEDS ORDERED: TORADOL IV ONE (13:45)
[2019-04-23] MEDS ORDERED: ZOFRAN IV ONE (13:46)
[2019-04-23 14:32] LABS: URINE SOURCE CLEAN CATCH
[2019-04-23 14:40] LABS: BILIRUBIN URINE NEGATIVE (NEGATIVE); BLOOD URINE NEGATIVE (NEGATIVE); COLOR ORANGE; GLUCOSE URINE NEGATIVE (NEGATIVE); KETONE URINE NEGATIVE (NEGATIVE); LEUKOCYTES URINE NEGATIVE (NEGATIVE); NITRITE URINE NEGATIVE (NEGATIVE); PROTEIN URINE 50 mg/dL (NEGATIVE); SP GRAVITY URINE 1.035; TURBIDITY URINE TURBID (CLEAR); UROBILINOGEN URINE NORMAL (NORMAL)
[2019-04-23 14:45] LABS: UR EPITHELIAL CELLS <10 /HPF (<10); URINE BACTERIA 2+ /HPF; URINE RBC <10 /HPF (<10)
[2019-04-23 14:54] LABS: URINE CASTS NONE SEEN; URINE CRYSTALS NONE SEEN; URINE YEAST NONE SEEN
[2019-04-23 15:30] LABS: BASO# 0.07 X1000 (0.0-0.2); BASO% 0.4 % (0.0-0.8); EOS# 0.15 X1000 (0.0-0.7); EOS% 0.9 % (0.0-10.0); HEMATOCRIT 35.2 % (37.0-47.0); HEMOGLOBIN 13.3 g/dL (12.0-16.0); IMM GRAN# 0.05 X1000 (0.0-0.04); IMM GRAN% 0.3 % (0.0-0.5); LYMPH# 3.79 X1000 (1.2-3.4); LYMPH% 22.5 % (20.5-51.1); MCH 29.8 PG (27-31); MCHC 37.8 g/dL (33-37); MCV 78.9 FL (81-99); MONO# 0.68 X1000 (0.11-0.59); MPV 11.3 FL (7.4-10.4); NEUT# 12.13 X1000 (1.4-6.5); NEUT% 71.9 % (42.2-75.2); PLT 235 X1000 (130-400); RBC 4.46 XMIL (4.2-5.4); RDW 15.8 % (11.5-14.5); WBC 16.87 X1000 (4.8-10.8)
[2019-04-23 15:41] LABS: AGAP 13; ALB/GLOB RATIO 1.1; ALBUMIN 3.7 g/dL (3.5-5.0); ALKALINE PHOSPHATASE 75 U/L (32-104); BUN 13 mg/dL (8-22); CHLORIDE 103 mmol/L (98-107); COSMO 276; CREATININE 0.8 mg/dL (0.5-0.9); ESTIMATED GFR > 60; GLUCOSE 96 mg/dL (70-104); GOT 26 U/L (10-30); GPT 28 U/L (10-36); LIPASE 30 U/L (13-60); POTASSIUM 4.7 mmol/L (3.5-5.1); SODIUM 138 mmol/L (136-145); TCO2 22 mmol/L (25-35); TOTAL BILIRUBIN 0.33 mg/dL (0.20-1.00)
--- NOTE | 2019-04-23 17:20 | Diag Imaging Result Doc PS360 ---
EXAM: CT ABD/PELVIS W/IV CONT ONLY - 04/23/2019 HISTORY: RLQ Pain TECHNIQUE: CT abdomen/pelvis with intravenous contrast COMPARISON: 07/29/2018 FINDINGS: There is a 2.1 x 1.4 cm noncalcified nodular lesion at the lateral left lung base which appears stable. There is severe enteritis which is most prominent at the left abdomen, where there is small bowel wall thickening and mesenteric edema. There is also a small to medium amount of abdominal and pelvic ascites. There is no discrete extraluminal gas collection or abscess identified. There is no free air identified. There is no discrete bowel obstruction. There is a small fat-containing umbilical hernia. The appendix is not discretely visualized. There are no substantial abnormalities of the liver, spleen, adrenal glands, or pancreas identified. There are no calcified gallstones or pericholecystic inflammation identified. There is no discrete pelvic mass. IMPRESSION: Severe enteritis with small bowel wall thickening, mesenteric edema, and ascites. This is most prominent on the left. No discrete bowel obstruction. The appendix is not visualized. No evidence of abscess. No free air. Small fat-containing umbilical hernia. Stable nodular lesion at left lung base. This exam was performed using automated exposure control, adjustment of mA or kV according to patient size, and/or use of iterative reconstruction technique. Electronically signed by Vinh Herrera 04/23/2019 5:17 PM
[2019-04-23] MEDS ORDERED: MORPHINE IV PRN (17:53)
--- NOTE | 2019-04-23 17:53 | PROVIDER DOCUMENTATION ---
This chart was entered by Lyn Martinez Scribe, acting as scribe for Braulio Gomes MD. HPI-Abdominal Pain/GI Problem - General Chief Complaint: Abdominal Pain Stated Complaint: ABD PAIN Time Seen by Provider: 04/23/19 13:31 Source: patient Allergies/Adverse Reactions: Patient Allergies Allergy/AdvReac Type Severity Reaction Status Date / Time No Known Allergies Allergy Verified 04/23/19 13:55 Home Medications: Home Medication List Medication Instructions Recorded Confirmed Last Taken Type Lisinopril 1 tab PO HS 07/29/18 07/29/18 04/22/19 20:00 History Dulaglutide [Trulicity] 0.75 SUBQ 04/23/19 04/22/19 History - History of Present Illness-ABD Nature of Presenting Problems: 33yof presents to ED cc constant, sharp with intermittent stabbing suprapubic abdominal pain since 1am, that is getting worse as day progresses and is now in the RLQ, nausea and decreased appetite. Pt reports she called PCP but had no appointments available today and she was in too much pain to wait until nayely orrow. Pt reports leaning forward helps pain. Pt denies vomiting. Pt reports she thought she had yeast infection over weekend so she took a 1 time dose of Monistat. Pt has had tubes tied and is on control due to prolonged cycles. Pt has hx of PCOS. Abdominal Pain Onset Location: reports: suprapubic Pain Radiation: reports: RLQ Quality of Pain: reports: sharp, stabbing Severity in ED: reports: moderate Onset/Duration: reports: this morning Timing: reports: still present, getting worse Activities at Onset: reports: sleep Exposure to sick contacts?: No Modifying Factors: improves with: other (leaning forward). worse with: breathing (deep), coughing, movement, palpation Associated Symptoms: reports: nausea. denies: cough, vomiting Emesis Description: reports: none Similar Symptoms Previously?: No Recently seen or treated by another doctor?: No Review of Systems - Adult - REVIEW OF SYSTEMS - ADULT Constitutional: reports: see HPI. denies: chills, fever, fatique Eyes: reports: no symptoms reported Ears, Nose, Mouth & Throat: reports: no symptoms reported Cardiovascular: reports: no symptoms reported Respiratory: reports: see HPI. denies: cough, shortness of breath Gastrointestinal: reports: see HPI, abdominal pain, nausea, poor appetite. denies: diarrhea, vomiting Genitourinary: reports: no symptoms reported Musculoskeletal: reports: no symptoms reported Integumentary: reports: no symptoms reported Neurological: reports: no symptoms reported Psychiatric: reports: no symptoms reported Endocrine: reports: no symptoms reported Hematologic/Lymphatic: reports: no symptoms reported Allergic/Immunologic: reports: no symptoms reported All Other Systems: Reviewed and Negative Past History - Adult - PAST MEDICAL HISTORY-ADULT Review of Records: reports: Nursing Assessment Review, Medications Reviewed, Social history reviewed & non-contributory. Major Childhood Illnesses: reports: denies history Cardiovascular: reports: denies history Respiratory: reports: denies history Gastrointestinal: reports: denies history Obstetrical/Gynecological: reports: denies history Genitourinary: reports: denies history Musculoskeletal: reports: denies history Neurological: reports: denies history Endocrine/Immune: reports: denies history Other Conditions: reports: denies history - PRIOR SURGERIES/PROCEDURES Surgical/Procedure History: reports: other (stomach sx as a toddler) - IMMUNIZATION STATUS Childhood Immunizations: See Nurse Assessment Flu Vaccine: See Nurse Assessment - FAMILY HISTORY Family History: reviewed, not pertinent Physical Exam-General - PHYSICAL EXAM-ADULT Initial Vital Signs Reviewed: Yes - CONSTITUTIONAL General Appearance: appears well, alert, no apparent distress. negative: anxious, combative - EYES Eyes: PERRL/EOMI, pink conjunctivae. negative: photophobia - HEAD, EARS, NOSE, MOUTH & THROAT HENMT: normocephalic/atraumatic, moist mucous membranes. negative: angioedema - NECK Neck: supple, normal inspection - RESPIRATORY Respiratory: chest non-tender, lungs clear, normal breath sounds. negative: rhonchi, wheezing - CARDIOVASCULAR Cardiovascular: normal peripheral pulses, regular rate, rhythm, no edema. negative: bradycardia, tachycardia - GASTROINTESTINAL (ABDOMEN) Abdominal Exam: soft, abnormal bowel sounds (hypoactive), rebound, McBurney's point tenderness, obturator sign, psoas sign, Rovsing's sign. negative: normal bowel sounds, guarding - MUSCULOSKELETAL Back Exam: normal inspection, no CVA tenderness, no vertebral tenderness Extremity: normal inspection, no pedal edema, no calf tenderness, normal capillary refill. negative: deformity - SKIN Integumentary: normal color. negative: diaphoresis, jaundice, rash - PSYCHIATRIC Psych/Mental Status: normal mood/affect, oriented x 3. negative: anxious, disheveled Progress - PLAN OF CARE/RESULTS Progress/Plan/Lab Results: Vital Signs - 8 hr 04/23/19 13:16 Temperature 97.7 F Pulse Rate 112 H Respiratory Rate 16 Blood Pressure 116/87 O2 Sat by Pulse Oximetry 96 Orders Category Date Time Status ED: Urine Bedside ORDERED Care 04/23/19 13:21 Active NEWS Score 2-4:Order NEWS Lactate Series NOW Care 04/23/19 13:19 Active CBC WITH DIFF [HEME] Stat Lab 04/23/19 13:21 Uncollected COMPREHENSIVE METABOLIC PANEL [CHEM] Stat Lab 04/23/19 13:21 Uncollected LACTATE, PLASMA [CHEM] Q3H Lab 04/23/19 13:30 Uncollected LACTATE, PLASMA [CHEM] Q3H Lab 04/23/19 16:30 Uncollected LACTATE, PLASMA [CHEM] Q3H Lab 04/23/19 19:30 Uncollected URINALYSIS [URINALYSIS] Stat Lab 04/23/19 13:21 Uncollected Abd Pain/Abn Bleeding Stat Oth 04/23/19 13:20 Ordered Result Diagrams: 04/23/19 15:06 04/23/19 15:06 - REASSESSMENT Reassessment #1 Time Reassessed: 17:51 Status: improving (better, but still very tender RLQ with peritoneal signs) - CT/MRI 1 CT Study: Abdomen Impression: See EMR Report (IMPRESSION: Severe enteritis with small bowel wall thickening, mesenteric edema, and ascites. This is most prominent on the left. No discrete bowel obstruction. The appendix is not visualized. No evidence of abscess. No free air. Small fat-containing umbilical hernia. Stable nodular lesion at left lung base. This exam was performed using automated exposure control, adjustment of mA or kV according to patient size, and/or use of iterative reconstruction technique. Electronically signed by Vinh Herrera 04/23/2019 5:17 PM) - CONSULTS/PCP/HOSPITALIST Notification #1 *Consult/PCP/Hospitalist*: Figh Time Discussed: 17:52 Reason/Comments: admit overnight obs, give abx, continue NPO Consult Disposition: Admit Departure - Departure Date of Disposition Decision: 04/23/19 Time of Disposition Decision: 17:53 DIAGNOSIS: Right lower quadrant abdominal pain of unknown etiology, Enteritis Disposition: ADMITTED INPATIENT 09 Certified Medical Emergency: Emergent Condition: Stable Referrals and Follow-Ups: Billy Wray MD [Primary Care Provider] - - Critical Care Note This patient required my direct & personal management of CC.: No Attestation - Physician/ CRIS Attestation Patient care was provided by Advanced Practice Provider:: No The physician spent face to face time with patient:: Yes Advanced Practice Provider documentation review:: Supervising physician onsite and consulted in the evaluation and care of this patient. The physician did have a face to face encounter with the patient. This chart was documented by the indicated scribe, (Lyn Martinez Scribe) and accurately reflects the services I performed and decisions made by me, Braulio Gomes MD, as attested by the provider's signature.
--- NOTE | 2019-04-23 20:42 | HISTORY AND PHYSICAL ---
ADMITTING DIAGNOSIS: Abdominal pain. HPI: A 33-year-old female presenting with a less than 24 hour history of abdominal pain initially described as being suprapubic and now right lower quadrant and described as sharp and stabbing and moderate but getting worse. She was seen in emergency department because she could get into her primary care physician and had a CT scan. The appendix was not well visualized, but it looked like there was enteritis and some ascites. The patient denies any kind of recent travel, camping, change in her diet, change in her bowel habits, nausea, vomiting, blood in her stool but does report this pain. The only thing of note is she has recently started defer control pills secondary to prolonged cycle. PAST MEDICAL HISTORY: 1. Polycystic ovarian syndrome. 2. Hypertension. 3. History of pyloric stenosis. PAST SURGICAL HISTORY: Includes , pyloroplasty. SOCIAL HISTORY: Current smoker. Alcohol none. ALLERGIES: None. HOME MEDICATIONS: Lisinopril and Trulicity. FAMILY HISTORY: Reviewed with the patient and noncontributory. REVIEW OF SYSTEMS: A full 14 systems reviewed, negative except as specified in HPI. PHYSICAL EXAMINATION: VITAL SIGNS: Patient is currently afebrile. Temperature 98.7, pulse 88, respiratory rate 16, blood pressure 128/65. GENERAL: No acute distress but appears uncomfortable female looks stated age. The patient's BMI is 49.1. HEENT: Normocephalic, atraumatic. Pupils equal, round, reactive to light. Mucous membranes moist. Oropharynx benign. NECK: Supple. Trachea midline. CARDIOVASCULAR: Regular rate and rhythm. LUNGS: Grossly clear. ABDOMEN: Obese. Some tenderness diffusely but no real peritoneal signs at this time. EXTREMITIES: Moves all extremities. NEUROLOGIC: Grossly intact. SKIN: No signs of jaundice. VASCULAR: All extremities perfused. LABORATORY: White blood cell count 16, hematocrit 35, MCV 78.9, platelet count 235,000. Electrolytes normal. Plasma lactate is normal. Urine white blood cell count is elevated. CT scan independently reviewed and radiology report reviewed. ASSESSMENT/PLAN: 33-year-old female with abdominal pain. 1. Abdominal pain. At this time it looks like he had enteritis like picture. CT scan did not show her appendix, but there is no periappendiceal stranding. She does have ascites, which could be related to an significant enteritis like picture. Her bowel looked viable on the CT scan. It was a contrasted CT scan and her plasma lactate is normal, so I do not think she has ischemic bowel. At this point, we will put her on IV antibiotics and IV hydration to keep her NPO and we will check a series of stool studies to make sure she does not have some kind of bacterial enteritis or even C. Diff because she had been on some antibiotics recently. 2. Umbilical hernia. At this time, it is asymptomatic but probably needs to have addressed once she is over these acute issues. 3. Iron deficiency anemia. There is some slight degree concern given the fact she has enteritis like picture that she might have a GI bleed, but given the patient's history of having abnormal menstrual cycles with some lasting over 6 months and just recently changing her from control medication, this may be physiologic with her age in her menstrual cycle, but we will need to keep a close eye on it. I will just be on the safe side and check a stool occult blood. If anything shows up on this studies for stool or positive blood, may get GI involved, but otherwise will continue supportive care. I had an extensive discussion with the patient and her about this and she wants to proceed with this route. I told her to tell the nurses if anything changes. cc: Mathew Dai MD
[2019-04-23] MEDS: ZOSYN 4.5 GM in NS 100 ML IV SCH (22:12)
[2019-04-24] MEDS ORDERED: NS 1,000 ML ONE (03:17)
[2019-04-24] MEDS: ZOSYN 4.5 GM in NS 100 ML IV SCH ×4 (04:10→21:42)
[2019-04-24] MEDS ORDERED: ZOFRAN IV PRN (05:22)
[2019-04-24] MEDS: LR 1,000 ML IV SCH ×2 (07:22→18:55)
[2019-04-24 08:30] LABS: BASO# 0.02 X1000 (0.0-0.2); BASO% 0.2 % (0.0-0.8); HEMOGLOBIN 10.6 g/dL (12.0-16.0); LYMPH% 39.5 % (20.5-51.1); MCH 23.9 PG (27-31); MCHC 29.4 g/dL (33-37); MCV 81.1 FL (81-99); MONO# 0.57 X1000 (0.11-0.59); MONO% 5.9 % (1.7-9.3); NEUT# 5.12 X1000 (1.4-6.5); NEUT% 53.4 % (42.2-75.2); PLT 304 X1000 (130-400); RBC 4.44 XMIL (4.2-5.4); RDW 16.3 % (11.5-14.5); WBC 9.61 X1000 (4.8-10.8)
--- NOTE | 2019-04-24 10:12 | GENERAL SURGERY PROGRESS NOTE ---
DATE: 04/24/2019 SUBJECTIVE: Patient seems to be doing okay, feeling a little bit better. OBJECTIVE: Vital Signs: Patient is currently afebrile, her vital signs are stable. General: In no acute distress. HEENT: Normocephalic, atraumatic. Pupils equal, round, reactive to light. Mucous membranes moist. Oropharynx benign. Neck: Supple, trachea midline. Cardiovascular: Regular rate and rhythm. Lungs: Grossly clear. Abdomen: Soft, obese, but less tender to palpation. No peritoneal signs. Extremities: Moves all extremities. Neurologic: Grossly intact. Skin: No signs of jaundice. Vascular: All extremities perfused. LABORATORY DATA: Of note, her plasma lactate has stayed normal. Remainder of labs are pending. Her stool studies are pending. ASSESSMENT AND PLAN: 33-year-old female with abdominal pain. 1. Abdominal pain at this time seems to be improving. If she continues to do well around lunchtime we will start her on a liquid diet and continue to progress her as she tolerates it. 2. Umbilical hernia. At this time, again we will address it as an outpatient. 3. Iron deficiency anemia. We will recheck labs this morning, but I suspect it is related to her heavy menstrual cycles and irregularity. cc: Mathew Dai MD
[2019-04-24] MEDS: TORADOL IV PRN ×2 (11:53→18:55)
[2019-04-25] MEDS: LR 1,000 ML IV SCH (04:59)
[2019-04-25] MEDS: ZOSYN 4.5 GM in NS 100 ML IV SCH ×4 (04:59→21:13)
[2019-04-25] MEDS: TORADOL IV PRN (04:59)
[2019-04-25] MEDS ORDERED: LR 1,000 ML IV SCH (08:48)
--- NOTE | 2019-04-25 13:50 | GENERAL SURGERY PROGRESS NOTE ---
DATE: 04/25/2019 SUBJECTIVE: Ms. Paul is still somewhat tender, but is better. Her white count yesterday fell to 9600. Today we will advance her to full liquids. She says she does experience pain after taking p.o. intake, but she does want to have her diet advanced. So we will advance her to full liquids in hopes of going to solid food tomorrow and possibly discharge. cc: MD Mathew Gaspar MD
[2019-04-26] MEDS: ZOSYN 4.5 GM in NS 100 ML IV SCH ×5 (03:15→21:00)
--- NOTE | 2019-04-26 10:23 | GENERAL SURGERY PROGRESS NOTE ---
DATE: 04/26/2019 SUBJECTIVE: Ms. Paul is feeling better. Her studies thus far have been negative. We will advance her to solid food today and hopefully discharge her later today. cc: MD Mathew Gaspar MD
--- NOTE | 2019-04-26 15:10 | GENERAL SURGERY PROGRESS NOTE ---
DATE: 04/26/2019 After she ate solid food, she did cramp and get nauseated. I will put her on dicyclomine to see if that will help. Will keep her in the hospital 1 more night. cc: MD Mathew Gaspar MD
[2019-04-26] MEDS: BENTYL PO SCH ×2 (16:03→20:53)
[2019-04-27] MEDS: ZOSYN 4.5 GM in NS 100 ML IV SCH ×2 (04:07→09:29)
--- NOTE | 2019-04-27 06:28 | GENERAL SURGERY PROGRESS NOTE ---
DATE: 04/27/2019 SUBJECTIVE: Patient seems to be doing okay although she cramps with regular food. She did not cramp with the full liquids. She was started on Bentyl which has not really done much because she has not really eaten since then. She is having bowel movements. OBJECTIVE: Vital Signs: Patient is currently afebrile. Her vital signs are stable. General: No acute distress. HEENT: Normocephalic, atraumatic. Pupils equal, round, and reactive to light. Mucous membranes moist. Oropharynx benign. Neck: Supple. Trachea midline. Cardiovascular: Regular rate and rhythm. Lungs: Grossly clear. Abdomen: Soft. Nontender, but obese. Extremities: Moves all extremities. Neurologic: Grossly intact. Skin: No signs of jaundice. Vascular: All extremities perfused. LABORATORY: None this morning as of yet. ASSESSMENT AND PLAN: A 33-year-old female with abdominal pain with enteritis like picture. Enteritis. At this time, the etiology is unclear. The majority of her microbiology data has been negative. She is still having cramping like sensations. I will ask GI to see her today. I do not think she has a surgical abdomen because she is not tender, but need to make sure she does not have some different type of enteritis picture that I have not been able to test for yet. We will get their opinion and go from there. cc: Mathew Dai MD
[2019-04-27] MEDS ORDERED: PEPCID IV SCH (07:45)
[2019-04-27] MEDS ORDERED: SODIUM CHLORIDE 0.9% INJ SCH (07:45)
[2019-04-27] MEDS: BENTYL PO SCH ×2 (09:43→13:29)
[2019-04-27 11:00] VITALS: BP 152/106
[2019-04-27] MEDS ORDERED: CIPRO PO SCH (12:30)
[2019-04-27] MEDS ORDERED: PRINIVIL PO SCH (12:30)
--- NOTE | 2019-04-27 14:40 | GASTROENTEROLOGY CONSULTATION ---
DATE: 04/27/2019 REASON FOR CONSULTATION: Abdominal pain. HISTORY OF PRESENT ILLNESS: This is a 33-year-old female who reported onset of symptoms on early a.m. She awoke from sleep with right lower quadrant abdominal pain. She states by noon she could hardly stand up. She had denied fever. No reported blood in the stool or mucus in the stool. She did report nausea but denied vomiting. She reported a loss of appetite. She states after eating solid food she continues to get nausea and abdominal pain. She has not had a bowel movement since admission. Patient has never had EGD or colonoscopy. She denies constipation or diarrhea. She has not been out of town or out of the country. No reported sick contacts. She had a CT scan on 04/23/2019, findings showing severe enteritis prominent in the left abdomen, small bowel wall thickening and mesenteric edema. There is a small amount of ascites noted. There was a fat containing umbilical hernia, small appendix was not discretely visualized. She reports a family history of Crohn disease in a cousin. PAST MEDICAL HISTORY: Hypertension, polycystic ovary syndrome, history of pyloric stenosis. PAST SURGICAL HISTORY: section, pyloroplasty. ALLERGIES: No known drug allergies. HOME MEDICATIONS: Trulicity 0.5 mg subcu, lisinopril 1 tablet every night, Sprintec control 1 tablet daily. SOCIAL HISTORY: Positive for tobacco use. She has 2 children. No reported alcohol use. She is . FAMILY HISTORY: Reports a family history of Crohn disease in a cousin. No reported family history of GI cancers. She reports a family history of diverticulitis and IBS. REVIEW OF SYSTEMS: Per history of present illness. PHYSICAL EXAMINATION: Vital Signs: Temperature 98.8 degrees, pulse 75, respirations 16, blood pressure 152/106. General: Patient is awake and alert. She was sitting up in a chair playing cards with her mother at the time of my evaluation. Respiratory: Lung sounds essentially clear. Cardiovascular: Regular rate and rhythm. Abdomen: Soft. Some tenderness to the right lower quadrant, obese, positive bowel sounds. Extremities: No lower extremity edema noted. Neurologic: Cranial nerves 2-12 grossly intact. DIAGNOSTIC RESULTS: Laboratory. Hematology from 04/24/2019 showed WBC 9.61, hemoglobin 10.6, hematocrit 36.0, MCV 81.1, platelet 304,000, sedimentation rate 27. Chemistry. Sodium 138, potassium 4.7, chloride 103, CO2 of 22, BUN 13, creatinine 0.8, glucose 96, calcium 9.0, total bilirubin 0.33, AST 26, ALT 28, alkaline phosphatase 75. C-reactive protein 6.17, lipase 30. Urinalysis showed protein and WBCs 10 to 20. Imaging, CT scan showing severe enteritis with small bowel wall thickening, mesenteric edema and ascites more prominent on the left. ASSESSMENT AND PLAN: 1. Right lower quadrant abdominal pain. 2. Enteritis by CT scan. 3. Hypertension. Will change her antibiotic to Cipro by mouth twice daily. Continue Bentyl as needed for abdominal pain. Change diet to a GI soft diet with no milk or dairy products except will allow yogurt. She has a history of hypertension, has not been on her hypertensive medication since admission. Will start her lisinopril at home dose. Will continue to monitor. Further plans to be made as needed. I have discussed this case with Dr. Dhillon. Most likely, she can be discharged on antibiotics to follow up with us as an outpatient for outpatient workup including colonoscopy. So far her stool studies have all been negative for infectious etiology. Further plans be made as needed. Thank you for this consultation. Dictated by MILIND Tapia for Dewayne Dhillon MD cc: MILIND [place] MD Matthew L. Figh, MD
--- NOTE | 2019-04-29 11:05 | DISCHARGE SUMMARY ---
ADMISSION DATE: 04/23/2019 DISCHARGE DATE: 04/27/2019 ADMITTING DIAGNOSIS: Abdominal pain. DISCHARGE DIAGNOSIS: Enteritis. ADMITTING PHYSICIAN: Dr. Mathew Dai. CONSULTATIONS: Dr. Llanos with GI. PROCEDURES: None. BRIEF HISTORY AND COURSE OF STAY: [age] -year-old female who presented with abdominal pain. She had a CT scan that showed an enteritis like picture with some ascites. There was some concern initially about appendicitis. She was admitted and started on antibiotics. She improved clinically and my suspicion for appendicitis went down, but the concern for her enteritis persisted. We did several stool studies, which did not show any pathology and she was started on a diet and progressed. She did have some difficulty with solids, but seemed to tolerate it for the most part. I did get an opinion from Dr. Llanos in Gastroenterology about possible etiologies and they did evaluate her wanted to do further workup as an outpatient. On the day of discharge, the patient was hemodynamically stable. Her pain controlled. She is able to eat. She is up and ambulating. It is felt that she would be safe to be discharged home. All arrangements were made. DISPOSITION: Home. DISCHARGE CONDITION: Stable. FOLLOWUP: The patient told to followup with her primary care physician, myself, Dr. Dai, and Dr. Dhillon. PRESCRIPTIONS: Patient was given prescription for antibiotics and Bentyl. cc: Mathew Dai MD
== END 2019-04-27 13:49 | disposition home or self-care (01) | DRG 394 ==
LOC: ED 13:03 → OBSVTOIN 18:17 → INTOOBSV 18:17 → 4N 18:17
PROVIDERS: ADMIT Surgery; ATTEND Surgery